=== PATIENT | female | born 1995 | race Hispanic/Latino ===

== ENCOUNTER 2023-01-20 11:55 | Inpatient (IN) | payer OTHER ==
[2023-01-20] MEDS ORDERED: Labetalol HCl 100 MG/20 ML VIAL SLOW IVP PRN ×3 (12:32→19:30)
[2023-01-20] MEDS ORDERED: Acetaminophen 500 MG TAB PO PRN (12:32)
[2023-01-20] MEDS ORDERED: Tranexamic Acid 1,000 MG/10 ML VIAL IVP PRN (12:32)
[2023-01-20] MEDS ORDERED: Diphenoxylate HCl/Atropine Tablet PO PRN (12:32)
[2023-01-20] MEDS ORDERED: Lorazepam 2 MG/ML VIAL SLOW IVP PRN ×2 (12:32→19:30)
[2023-01-20] MEDS ORDERED: HYDROcodone/Acetaminophen 5/325 mg Tablet PO PRN ×2 (12:32→19:30)
[2023-01-20] MEDS ORDERED: Promethazine HCl 25 MG/ML VIAL IM PRN ×2 (12:32→19:30)
[2023-01-20] MEDS ORDERED: Misoprostol 200 MCG TAB PR PRN (12:32)
[2023-01-20] MEDS ORDERED: Ibuprofen 800 MG TAB PO PRN (12:32)
[2023-01-20] MEDS ORDERED: hydrALAZINE 20 MG/ML VIAL SLOW IVP PRN ×4 (12:32→19:30)
[2023-01-20] MEDS ORDERED: Ondansetron PF 4 MG/2 ML Vial IVP PRN ×2 (12:32→19:30)
[2023-01-20] MEDS ORDERED: Carboprost 250 MCG/ML AMP IM PRN (12:32)
[2023-01-20] MEDS ORDERED: Calcium Gluc 4.6 MEQ/10 ML (100 MG/ML) SLOW IVP PRN ×2 (12:32→19:30)
[2023-01-20] MEDS ORDERED: Lidocaine 1% (PF) 30 ML VIAL SC PRN (12:32)
[2023-01-20] MEDS ORDERED: fentaNYL 50 mcg/mL 1 mL Vial SLOW IVP PRN (12:44)
[2023-01-20] MEDS ORDERED: NS w/ Oxytocin 30 units 500 ML IV SCH ×3 (12:45)
[2023-01-20] MEDS ORDERED: Penicillin G Potassium 5 MILL.UNITS in Sodium Chloride 0.9% 100 ML IVPB SCH (12:45)
[2023-01-20] MEDS ORDERED: Lactated Ringer's 1,000 ML IV SCH (12:45)
[2023-01-20 13:12] LABS: Hemoglobin 10.4 g/dL (12.0-15.5); Mean Corpuscular HGB CONC 32.2 g/dL (32.0-36.0); Mean Corpuscular Hemoglobin 24.2 pg (27.0-33.0); Mean Corpuscular Volume 75.3 fl (81.6-98.3); Mean Platelet Volume 11.5 fl (7.4-10.4); Platelet Count 252 10x3/uL (150-450); RBC Distribution Width 15.9 % (11.5-14.5); Red Blood Cell (RBC) Count 4.29 10x6/uL (3.90-5.03); White Blood Cell (WBC) Count 10.1 10x3/uL (3.5-10.5)
[2023-01-20 13:28] LABS: ALT (SGPT) 13 U/L (8-55); AST (SGOT) 25 U/L (5-34); Albumin 3.1 g/dL (3.5-5.0); Alkaline Phosphatase 191 U/L (40-110); Anion Gap 15 mmol/L (10-20); BUN (Urea Nitrogen) 6 mg/dL (7.0-18.7); Bilirubin, Total 0.5 mg/dL (0.2-1.2); Calc. Creatinine Clearance 0 mL/min (70-130); Carbon Dioxide 18 mmol/L (22-29); Chloride 107 mmol/L (98-107); Estimated GFR 127; Globulin 3.3 g/dL (2.4-3.5); Glucose 66 mg/dL (70-105); Potassium 4.3 mmol/L (3.5-5.1); Protein, Total 6.4 g/dL (6.0-8.3); Sodium 136 mmol/L (136-145)
[2023-01-20 13:29] VITALS: BMI 43.6
[2023-01-20 13:48] LABS: Syphilis Antibody Nonreactive (Nonreactive); Syphilis Antibody Index 0.04 S/CO (<1.00 Non-Reactive)
[2023-01-20 13:49] LABS: HBSAg Index 0.16 S/CO (0-0.99); Hep B Surf Ag - L&D Non-Reactive S/CO (NonReactive)
[2023-01-20] MEDS ORDERED: Magnesium Sulfate 20 gm/500 ml 20 GM/500 ML BAG ONE (16:14)
[2023-01-20] MEDS ORDERED: Penicillin G 2.5 MILL.units 2.5 MILL.UNITS in Premix Bag 1 BAG IVPB SCH (16:45)
[2023-01-20] MEDS ORDERED: Fentanyl 2 mcg/Bup 0.1% Cadd 100 ML ONE (18:17)
[2023-01-20] MEDS ORDERED: Lidocaine 1% (PF) 30 ML VIAL ONE (18:39)
[2023-01-20] MEDS ORDERED: Milk Of Magnesia 30 ML UDCUP PO PRN (19:30)
[2023-01-20] MEDS ORDERED: Benzocaine-Menthol 82.5 ML CAN TOP PRN (19:30)
[2023-01-20] MEDS ORDERED: Boostrix 0.5 ML (Tdap) VIAL (>/=7 yrs of age) IM ONE (19:30)
[2023-01-20] MEDS ORDERED: Preparation H Ointment 28 GM TUBE PR PRN (19:30)
[2023-01-20] MEDS ORDERED: diphenhydrAMINE 25 MG CAP PO PRN (19:30)
[2023-01-20] MEDS ORDERED: Lanolin Ointment 7 GM TUBE TOP PRN (19:30)
[2023-01-20] MEDS ORDERED: Bisacodyl 10 MG SUPP PR PRN (19:30)
[2023-01-20] MEDS ORDERED: hydrALAZINE 20 MG/ML VIAL ONE (19:35)
[2023-01-20] MEDS ORDERED: NIFEdipine XL 30 MG TAB PO SCH (20:00)
[2023-01-21] MEDS ORDERED: Magnesium Sulfate 20 gm/500 ml 20 GM/500 ML BAG ONE ×2 (00:48→11:44)
[2023-01-21] MEDS: Ferrous Sulfate 325 MG TAB PO SCH ×2 (08:20→18:50)
[2023-01-21] MEDS: NIFEdipine XL 30 MG TAB PO SCH (09:18)
[2023-01-21] MEDS: Docusate 100 MG CAP PO SCH ×2 (09:19→21:16)
[2023-01-21] MEDS: Prenatal Vitamin 1 TAB PO SCH (09:20)
[2023-01-21] MEDS: Ibuprofen 800 MG TAB PO SCH ×3 (09:20→21:16)
[2023-01-21] MEDS ORDERED: Magnesium Sulfate 20 gm/500 ml 20 GM/500 ML BAG IVPB SCH (13:00)
[2023-01-22] MEDS: Ibuprofen 800 MG TAB PO SCH ×4 (05:06→21:05)
[2023-01-22] MEDS: Ferrous Sulfate 325 MG TAB PO SCH ×2 (08:25→17:35)
[2023-01-22] MEDS: Docusate 100 MG CAP PO SCH ×3 (08:27→21:05)
[2023-01-22] MEDS: NIFEdipine XL 30 MG TAB PO SCH (08:44)
[2023-01-22] MEDS: Prenatal Vitamin 1 TAB PO SCH (08:44)
[2023-01-22] MEDS: cloNIDine 0.1 MG TAB PO PRN (19:42)
[2023-01-23] MEDS: Ibuprofen 800 MG TAB PO SCH ×2 (06:09→12:45)
[2023-01-23] MEDS: Ferrous Sulfate 325 MG TAB PO SCH (08:23)
[2023-01-23] MEDS: Prenatal Vitamin 1 TAB PO SCH (08:23)
[2023-01-23] MEDS: NIFEdipine XL 30 MG TAB PO SCH (08:23)
[2023-01-23] MEDS: Docusate 100 MG CAP PO SCH (08:24)
[2023-01-23] MEDS: cloNIDine 0.1 MG TAB PO PRN (12:44)
[2023-01-23 12:49] VITALS: TEMP 98.3
[2023-01-23 13:59] VITALS: BP 126/78
== END 2023-01-23 15:00 | disposition home or self-care (01) | DRG 807 ==
LOC: CSHLD 11:55 → CSHPP 01-21 20:08
PROVIDERS: ADMIT Family Medicine; ATTEND Family Medicine
PROC: 10E0XZZ Delivery of Products of Conception, External Approach (ICD-10-PCS; principal; 2023-01-20)
PROC: 3E0334Z Introduction of Serum, Toxoid and Vaccine into Peripheral Vein, Percutaneous Approach (ICD-10-PCS; 2023-01-20)
PROC: 10907ZC Drainage of Amniotic Fluid, Therapeutic from Products of Conception, Via Natural or Artificial Opening (ICD-10-PCS; 2023-01-20)
PROC: 3E033VJ Introduction of Other Hormone into Peripheral Vein, Percutaneous Approach (ICD-10-PCS; 2023-01-20)
DX: O26.893 Other specified pregnancy related conditions, third trimester (principal); Z37.0 Single live birth; Z67.11 Type A blood, Rh negative; Z3A.38 38 weeks gestation of pregnancy; O99.824 Streptococcus B carrier state complicating childbirth; Z79.899 Other long term (current) drug therapy
CPT/HCPCS: 51702; 80053; 85027; 85461; 86780; 86850; 86900; 86901; 87340; 90384; 96372; J0360; J2540; J2590; J3475; J3490; J7120

== ENCOUNTER 2023-10-04 20:44 | Emergency (ER) | payer OTHER, SELFPAY ==
[2023-10-04] MEDS ORDERED: Ibuprofen 200 MG TAB ONE (21:09)
[2023-10-04 21:44] LABS: Pregnancy Test - Urine (BHCG) Negative (Negative); Pregu Control Background? CLEAR/WHITE (CLR/WHITE); Pregu Control Bar Appear? YES (CONTROL BAR); Specific Gravity 1.015 (1.002-1.036)
== END 2023-10-04 22:28 | disposition home or self-care (01) ==
LOC: CSHERS 20:44
DX: R07.9 Chest pain, unspecified (principal)
CPT/HCPCS: 71045; 81025; 93005